=== PATIENT | male | born 1980 | race Two or more races ===

== ENCOUNTER 2021-07-10 08:18 | Inpatient (IN) | payer OTHER ==
[2021-07-10 08:40] VITALS: BMI 26.6
[2021-07-10 09:43] LABS: VENOUS O2 SATURATION 23.9 % (70-80); VENOUS PCO2 44.2 mmHg (38-52); VENOUS PH 7.365 (7.310-7.410)
[2021-07-10 09:45] LABS: BASO % 0.6 % (0-2.0); HEMATOCRIT 47.7 % (35.4-49); HEMOGLOBIN 16.6 GM/dL (11.7-16.9); LYMPH % 20.1 % (8-40); MCH 30.3 pg (25.7-33.7); MCHC 34.7 g/dl (32.0-35.9); MEAN CELL VOLUME 87.3 fl (80-96); MEAN PLT VOLUME 8.2 fl (7.5-11.1); MONO % 8.3 % (3.8-10.2); PLATELET COUNT 396 10^3/uL (134-434); RBC 5.47 M/mm3 (4.00-5.60); RDW 13.4 % (11.9-15.9); WHITE BLOOD COUNT 9.2 K/mm3 (4.0-10.0)
[2021-07-10 10:01] LABS: INR 1.09 (0.83-1.09); PROTHROMBIN TIME (PATIENT) 13.4 SEC (9.7-13.0)
[2021-07-10 10:04] LABS: ACTIVATED PTT 33.5 SECONDS (25.2-36.5)
[2021-07-10 10:06] LABS: CHLORIDE 105 mmol/L (98-107); SODIUM 137 mmol/L (136-145)
[2021-07-10 10:08] LABS: CALCIUM 9.3 mg/dL (8.5-10.1)
[2021-07-10 10:09] LABS: ALBUMIN 3.4 g/dl (3.4-5.0); ANION GAP 6 MMOL/L (8-16); BLOOD UREA NITROGEN 16.7 mg/dL (7-18); CO2 26 mmol/L (21-32); GLUCOSE,RANDOM 87 mg/dL (74-106)
[2021-07-10 10:11] LABS: BILIRUBIN,DIRECT 0.1 mg/dL (0.0-0.2)
[2021-07-10 10:12] LABS: CREATININE 1.1 mg/dL (0.55-1.3); SGOT/AST 25 U/L (15-37); SGPT/ALT 70 U/L (13-61)
[2021-07-10 10:13] LABS: BILIRUBIN,TOTAL 0.8 mg/dL (0.2-1)
[2021-07-10 10:14] LABS: ALK PHOS 118 U/L (45-117)
[2021-07-10 10:15] LABS: LDH 350 U/L (87-246)
[2021-07-10] MEDS ORDERED: ENOXAPARIN NA (PORCINE) 80 MG/0.8 ML DISP.SYRIN SQ ONE ×2 (10:15→10:31)
[2021-07-10] MEDS ORDERED: DEXAMETHASONE SOD PHOSPHATE 4 MG/1 ML VIAL IVPUSH ONE (10:26)
[2021-07-10] MEDS ORDERED: DEXAMETHASONE SOD PHOSPHATE 4 MG/1 ML VIAL ONE (10:31)
[2021-07-10 18:48] LABS: URINE APPEARANCE CLEAR; URINE BILIRUBIN NEGATIVE (NEGATIVE); URINE COLOR YELLOW; URINE GLUCOSE (UA) NEGATIVE (NEGATIVE); URINE KETONE NEGATIVE (NEGATIVE); URINE LEUK ESTERASE NEGATIVE (NEGATIVE); URINE NITRITE NEGATIVE (NEGATIVE); URINE PROTEIN NEGATIVE (NEGATIVE)
[2021-07-10 20:11] LABS: HIV INTERPRETATION NEGATIVE (NEGATIVE)
[2021-07-10] MEDS: ZINC SULFATE 220 MG CAPSULE (FP) PO SCH (21:58)
[2021-07-10] MEDS: ASCORBIC ACID 250 MG TABLET (FP) PO SCH (21:58)
[2021-07-10] MEDS: FAMOTIDINE 20 MG TABLET PO SCH (21:58)
[2021-07-10] MEDS: ENOXAPARIN NA (PORCINE) 80 MG/0.8 ML DISP.SYRIN SQ SCH (21:58)
[2021-07-11 08:23] LABS: BASO % 0.8 % (0-2.0); EOS % 0.2 % (0-4.5); HEMATOCRIT 42.5 % (35.4-49); HEMOGLOBIN 14.8 GM/dL (11.7-16.9); LYMPH % 21.3 % (8-40); MCH 30.5 pg (25.7-33.7); MCHC 34.8 g/dl (32.0-35.9); MEAN CELL VOLUME 87.7 fl (80-96); MEAN PLT VOLUME 8.8 fl (7.5-11.1); MONO % 8.3 % (3.8-10.2); NEUT % 69.4 % (42.8-82.8); PLATELET COUNT 318 10^3/uL (134-434); RBC 4.84 M/mm3 (4.00-5.60); RDW 13.4 % (11.9-15.9); WHITE BLOOD COUNT 7.5 K/mm3 (4.0-10.0)
[2021-07-11 08:42] LABS: CALCIUM 8.9 mg/dL (8.5-10.1)
[2021-07-11 08:43] LABS: BLOOD UREA NITROGEN 18.2 mg/dL (7-18); MAGNESIUM 2.2 mg/dL (1.8-2.4)
[2021-07-11 08:46] LABS: CREATININE 0.9 mg/dL (0.55-1.3)
[2021-07-11 08:47] LABS: BILIRUBIN,TOTAL 0.6 mg/dL (0.2-1); TOT PROT 7.2 g/dl (6.4-8.2)
[2021-07-11] MEDS: DEXAMETHASONE SOD PHOSPHATE 10 MG/1 ML VIAL IVPUSH SCH (10:18)
[2021-07-11] MEDS: CHOLECALCIFEROL (VIT D3) 1,000 UNIT (25 MCG) TABLET PO SCH (10:18)
[2021-07-11] MEDS: ZINC SULFATE 220 MG CAPSULE (FP) PO SCH ×2 (10:18→21:51)
[2021-07-11] MEDS: FAMOTIDINE 20 MG TABLET PO SCH ×2 (10:18→21:51)
[2021-07-11] MEDS: ASCORBIC ACID 250 MG TABLET (FP) PO SCH ×2 (10:19→21:51)
[2021-07-11] MEDS: ENOXAPARIN NA (PORCINE) 80 MG/0.8 ML DISP.SYRIN SQ SCH ×2 (10:19→21:51)
[2021-07-11] MEDS ORDERED: FLU VACC QS2021-22(6MOS UP)/PF 60 MCG/0.5 ML SYRINGE IM ONE (15:15)
[2021-07-12] MEDS ORDERED: PT OWN MED DRAWER 7, Y5N ONE (09:01)
[2021-07-12] MEDS: ASCORBIC ACID 250 MG TABLET (FP) PO SCH ×2 (09:16→21:27)
[2021-07-12] MEDS: CHOLECALCIFEROL (VIT D3) 1,000 UNIT (25 MCG) TABLET PO SCH (09:16)
[2021-07-12] MEDS: ENOXAPARIN NA (PORCINE) 80 MG/0.8 ML DISP.SYRIN SQ SCH ×2 (09:18→21:27)
[2021-07-12] MEDS: FAMOTIDINE 20 MG TABLET PO SCH ×2 (09:19→21:27)
[2021-07-12] MEDS: DEXAMETHASONE SOD PHOSPHATE 10 MG/1 ML VIAL IVPUSH SCH (09:19)
[2021-07-12] MEDS: ZINC SULFATE 220 MG CAPSULE (FP) PO SCH ×2 (09:19→21:27)
[2021-07-12 09:22] LABS: BASO % 0.4 % (0-2.0); EOS % 0.2 % (0-4.5); HEMATOCRIT 45.9 % (35.4-49); HEMOGLOBIN 15.6 GM/dL (11.7-16.9); LYMPH % 20.8 % (8-40); MCH 30.6 pg (25.7-33.7); MEAN PLT VOLUME 8.9 fl (7.5-11.1); MONO % 7.8 % (3.8-10.2); NEUT % 70.8 % (42.8-82.8); PLATELET COUNT 333 10^3/uL (134-434); RBC 5.11 M/mm3 (4.00-5.60); RDW 13.5 % (11.9-15.9); WHITE BLOOD COUNT 8.1 K/mm3 (4.0-10.0)
[2021-07-12 11:39] LABS: BLOOD UREA NITROGEN 20.3 mg/dL (7-18); CHLORIDE 107 mmol/L (98-107); CO2 26 mmol/L (21-32); CREATININE 0.9 mg/dL (0.55-1.3); GLUCOSE,RANDOM 84 mg/dL (74-106); MAGNESIUM 2.1 mg/dL (1.8-2.4); SODIUM 141 mmol/L (136-145); TOT PROT 7.4 g/dl (6.4-8.2)
[2021-07-12 11:40] LABS: ALK PHOS 117 U/L (45-117); BILIRUBIN,TOTAL 0.5 mg/dL (0.2-1); SGOT/AST 109 U/L (15-37); SGPT/ALT 224 U/L (13-61)
[2021-07-13 06:26] LABS: BASO % 0.4 % (0-2.0); EOS % 0.3 % (0-4.5); HEMATOCRIT 44.6 % (35.4-49); HEMOGLOBIN 15.2 GM/dL (11.7-16.9); LYMPH % 25.9 % (8-40); MCH 30.4 pg (25.7-33.7); MCHC 34.2 g/dl (32.0-35.9); MEAN CELL VOLUME 88.9 fl (80-96); MEAN PLT VOLUME 8.6 fl (7.5-11.1); MONO % 8.8 % (3.8-10.2); NEUT % 64.6 % (42.8-82.8); PLATELET COUNT 321 10^3/uL (134-434); RBC 5.01 M/mm3 (4.00-5.60); RDW 13.6 % (11.9-15.9); WHITE BLOOD COUNT 9.2 K/mm3 (4.0-10.0)
[2021-07-13 06:43] LABS: ALBUMIN 2.9 g/dl (3.4-5.0); BLOOD UREA NITROGEN 20.1 mg/dL (7-18)
[2021-07-13 06:44] LABS: CALCIUM 9.4 mg/dL (8.5-10.1); MAGNESIUM 2.4 mg/dL (1.8-2.4)
[2021-07-13 06:47] LABS: CREATININE 0.9 mg/dL (0.55-1.3)
[2021-07-13 06:48] LABS: BILIRUBIN,TOTAL 0.4 mg/dL (0.2-1)
[2021-07-13] MEDS: ENOXAPARIN NA (PORCINE) 80 MG/0.8 ML DISP.SYRIN SQ SCH ×2 (09:46→21:52)
[2021-07-13] MEDS: ASCORBIC ACID 250 MG TABLET (FP) PO SCH ×2 (09:47→21:52)
[2021-07-13] MEDS: ZINC SULFATE 220 MG CAPSULE (FP) PO SCH ×2 (09:47→21:52)
[2021-07-13] MEDS: FAMOTIDINE 20 MG TABLET PO SCH ×2 (09:47→21:52)
[2021-07-13] MEDS: DEXAMETHASONE SOD PHOSPHATE 10 MG/1 ML VIAL IVPUSH SCH (09:47)
[2021-07-13] MEDS: CHOLECALCIFEROL (VIT D3) 1,000 UNIT (25 MCG) TABLET PO SCH (09:47)
[2021-07-13] MEDS ORDERED: FLU VACC QS2021-22(6MOS UP)/PF 60 MCG/0.5 ML SYRINGE IM ONE (10:00)
[2021-07-13] MEDS ORDERED: PT OWN MED DRAWER 7, Y5N ONE (21:45)
[2021-07-14] MEDS ORDERED: PT OWN MED DRAWER 7, Y5N ONE ×2 (08:50→21:48)
[2021-07-14] MEDS: ENOXAPARIN NA (PORCINE) 80 MG/0.8 ML DISP.SYRIN SQ SCH ×2 (09:20→22:43)
[2021-07-14] MEDS: FAMOTIDINE 20 MG TABLET PO SCH ×2 (09:20→22:42)
[2021-07-14] MEDS: DEXAMETHASONE SOD PHOSPHATE 10 MG/1 ML VIAL IVPUSH SCH (09:20)
[2021-07-14] MEDS: ZINC SULFATE 220 MG CAPSULE (FP) PO SCH ×2 (09:20→22:42)
[2021-07-14] MEDS: ASCORBIC ACID 250 MG TABLET (FP) PO SCH ×2 (09:20→22:43)
[2021-07-14] MEDS: CHOLECALCIFEROL (VIT D3) 1,000 UNIT (25 MCG) TABLET PO SCH (09:20)
[2021-07-14 12:22] LABS: BASO % 0.4 % (0-2.0); EOS % 0.1 % (0-4.5); HEMATOCRIT 45.2 % (35.4-49); HEMOGLOBIN 15.4 GM/dL (11.7-16.9); LYMPH % 11.1 % (8-40); MCH 30.2 pg (25.7-33.7); MCHC 34.2 g/dl (32.0-35.9); MEAN CELL VOLUME 88.4 fl (80-96); MEAN PLT VOLUME 8.6 fl (7.5-11.1); MONO % 5.2 % (3.8-10.2); NEUT % 83.2 % (42.8-82.8); PLATELET COUNT 306 10^3/uL (134-434); RBC 5.11 M/mm3 (4.00-5.60); RDW 13.4 % (11.9-15.9)
[2021-07-14 12:42] LABS: ALBUMIN 2.9 g/dl (3.4-5.0)
[2021-07-14 12:44] LABS: BILIRUBIN,TOTAL 1.2 mg/dL (0.2-1)
[2021-07-14 12:45] LABS: BILIRUBIN,DIRECT 0.1 mg/dL (0.0-0.2)
[2021-07-14 12:47] LABS: TOT PROT 7.3 g/dl (6.4-8.2)
[2021-07-14 13:57] LABS: BILIRUBIN,TOTAL 0.3 mg/dL (0.2-1); BLOOD UREA NITROGEN 20.5 mg/dL (7-18); CALCIUM 9.2 mg/dL (8.5-10.1); CREATININE 0.8 mg/dL (0.55-1.3); TOT PROT 7.1 g/dl (6.4-8.2)
[2021-07-15 06:40] LABS: BASO % 0.4 % (0-2.0); EOS % 0.4 % (0-4.5); HEMATOCRIT 45.2 % (35.4-49); HEMOGLOBIN 15.7 GM/dL (11.7-16.9); LYMPH % 28.7 % (8-40); MCH 30.6 pg (25.7-33.7); MCHC 34.7 g/dl (32.0-35.9); MEAN CELL VOLUME 88.4 fl (80-96); MEAN PLT VOLUME 9.1 fl (7.5-11.1); NEUT % 63.5 % (42.8-82.8); PLATELET COUNT 388 10^3/uL (134-434); RBC 5.11 M/mm3 (4.00-5.60); RDW 13.3 % (11.9-15.9); WHITE BLOOD COUNT 10.4 K/mm3 (4.0-10.0)
[2021-07-15 07:08] LABS: ALBUMIN 3.3 g/dl (3.4-5.0); CALCIUM 9.3 mg/dL (8.5-10.1)
[2021-07-15 07:09] LABS: BLOOD UREA NITROGEN 18.4 mg/dL (7-18); MAGNESIUM 2.1 mg/dL (1.8-2.4)
[2021-07-15 07:13] LABS: BILIRUBIN,TOTAL 0.6 mg/dL (0.2-1); TOT PROT 7.6 g/dl (6.4-8.2)
[2021-07-15] MEDS: FAMOTIDINE 20 MG TABLET PO SCH ×2 (10:15→21:02)
[2021-07-15] MEDS: ZINC SULFATE 220 MG CAPSULE (FP) PO SCH ×2 (10:16→21:02)
[2021-07-15] MEDS: APIXABAN 5 MG TABLET PO SCH ×2 (10:16→21:03)
[2021-07-15] MEDS: CHOLECALCIFEROL (VIT D3) 1,000 UNIT (25 MCG) TABLET PO SCH (10:16)
[2021-07-15] MEDS: ASCORBIC ACID 250 MG TABLET (FP) PO SCH ×2 (10:16→21:02)
[2021-07-15] MEDS: DEXAMETHASONE 4 MG TABLET (FP) PO SCH (10:16)
[2021-07-15] MEDS ORDERED: PT OWN MED DRAWER 7, Y5N ONE (20:58)
[2021-07-16 08:02] LABS: BASO % 0.6 % (0-2.0); EOS % 0.9 % (0-4.5); HEMATOCRIT 43.6 % (35.4-49); HEMOGLOBIN 15.2 GM/dL (11.7-16.9); LYMPH % 27.3 % (8-40); MCH 30.6 pg (25.7-33.7); MCHC 34.8 g/dl (32.0-35.9); MEAN CELL VOLUME 87.8 fl (80-96); MEAN PLT VOLUME 8.6 fl (7.5-11.1); MONO % 8.3 % (3.8-10.2); NEUT % 62.9 % (42.8-82.8); PLATELET COUNT 321 10^3/uL (134-434); RBC 4.96 M/mm3 (4.00-5.60); RDW 13.4 % (11.9-15.9); WHITE BLOOD COUNT 9.4 K/mm3 (4.0-10.0)
[2021-07-16 08:08] LABS: INR 1.19 (0.83-1.09); PROTHROMBIN TIME (PATIENT) 14.7 SEC (9.7-13.0)
[2021-07-16 08:27] LABS: ALBUMIN 3.1 g/dl (3.4-5.0); BLOOD UREA NITROGEN 18.6 mg/dL (7-18); CALCIUM 9.2 mg/dL (8.5-10.1)
[2021-07-16 08:28] LABS: MAGNESIUM 2.2 mg/dL (1.8-2.4)
[2021-07-16 08:30] LABS: CREATININE 0.9 mg/dL (0.55-1.3)
[2021-07-16 08:32] LABS: TOT PROT 7.3 g/dl (6.4-8.2)
[2021-07-16] MEDS: APIXABAN 5 MG TABLET PO SCH (10:26)
[2021-07-16] MEDS: ASCORBIC ACID 250 MG TABLET (FP) PO SCH ×2 (10:26→22:02)
[2021-07-16] MEDS: FAMOTIDINE 20 MG TABLET PO SCH ×2 (10:26→22:02)
[2021-07-16] MEDS: DEXAMETHASONE 4 MG TABLET (FP) PO SCH (10:27)
[2021-07-16] MEDS: ZINC SULFATE 220 MG CAPSULE (FP) PO SCH ×2 (10:27→22:02)
[2021-07-16] MEDS: CHOLECALCIFEROL (VIT D3) 1,000 UNIT (25 MCG) TABLET PO SCH (10:27)
[2021-07-16] MEDS ORDERED: HEPARIN NA (PORCINE) 5,000 UNITS/ML 1ML VIAL IVPUSH PRN ×2 (15:09)
[2021-07-16] MEDS: HEPARIN INFUSION - 25,000 UNITS/500 ML INFUS.BAG IVPB SCH (15:27)
[2021-07-16] MEDS ORDERED: PT OWN MED DRAWER 7, Y5N ONE (21:56)
[2021-07-16] MEDS ORDERED: ENOXAPARIN NA (PORCINE) 80 MG/0.8 ML DISP.SYRIN SQ SCH (22:00)
[2021-07-17 06:26] LABS: HEMOGLOBIN 15.9 GM/dL (11.7-16.9); MCH 30.3 pg (25.7-33.7); MCHC 33.9 g/dl (32.0-35.9); MEAN CELL VOLUME 89.4 fl (80-96); MEAN PLT VOLUME 9.1 fl (7.5-11.1); PLATELET COUNT 362 10^3/uL (134-434); RBC 5.26 M/mm3 (4.00-5.60); RDW 13.5 % (11.9-15.9)
[2021-07-17 06:35] LABS: INR 1.04 (0.83-1.09); PROTHROMBIN TIME (PATIENT) 12.8 SEC (9.7-13.0)
[2021-07-17 06:53] LABS: CALCIUM 9.4 mg/dL (8.5-10.1)
[2021-07-17 06:54] LABS: ALBUMIN 3.5 g/dl (3.4-5.0); BLOOD UREA NITROGEN 18.8 mg/dL (7-18); MAGNESIUM 2.6 mg/dL (1.8-2.4)
[2021-07-17 06:57] LABS: BILIRUBIN,TOTAL 0.6 mg/dL (0.2-1); CREATININE 0.9 mg/dL (0.55-1.3)
[2021-07-17 08:45] LABS: ANISOCYTOSIS 0; HELMET CELLS 0; HOWELL-JOLLY BODIES 0; MACROCYTOSIS 0; OVALOCYTE 0; PLATELET ESTIMATE NORMAL; ROULEAU 0; SICKELED CELLS 0; TARGET CELLS 0; TEAR DROP CELLS 0; TOXIC GRANULATION 0
[2021-07-17] MEDS ORDERED: PT OWN MED DRAWER 7, Y5N ONE ×2 (08:47→22:36)
[2021-07-17] MEDS: ZINC SULFATE 220 MG CAPSULE (FP) PO SCH ×2 (09:22→22:39)
[2021-07-17] MEDS: FAMOTIDINE 20 MG TABLET PO SCH ×2 (09:22→22:39)
[2021-07-17] MEDS: ASCORBIC ACID 250 MG TABLET (FP) PO SCH ×2 (09:23→22:39)
[2021-07-17] MEDS: DEXAMETHASONE 4 MG TABLET (FP) PO SCH (09:23)
[2021-07-17] MEDS ORDERED: APIXABAN 5 MG TABLET PO SCH (10:00)
[2021-07-17] MEDS: HEPARIN INFUSION - 25,000 UNITS/500 ML INFUS.BAG IVPB SCH ×2 (12:51→20:14)
[2021-07-18] MEDS: ZINC SULFATE 220 MG CAPSULE (FP) PO SCH ×2 (09:42→21:40)
[2021-07-18] MEDS: DEXAMETHASONE 4 MG TABLET (FP) PO SCH (09:42)
[2021-07-18] MEDS: FAMOTIDINE 20 MG TABLET PO SCH ×2 (09:42→21:40)
[2021-07-18] MEDS ORDERED: PT OWN MED DRAWER 7, Y5N ONE ×3 (09:45→21:27)
[2021-07-18 09:50] LABS: HEMATOCRIT 43.7 % (35.4-49); HEMOGLOBIN 15.1 GM/dL (11.7-16.9); MCH 30.5 pg (25.7-33.7); MCHC 34.5 g/dl (32.0-35.9); MEAN CELL VOLUME 88.4 fl (80-96); PLATELET COUNT 306 10^3/uL (134-434); RBC 4.94 M/mm3 (4.00-5.60); RDW 13.6 % (11.9-15.9); WHITE BLOOD COUNT 11.4 K/mm3 (4.0-10.0)
[2021-07-18 10:00] LABS: INR 0.99 (0.83-1.09)
[2021-07-18 10:19] LABS: BLOOD UREA NITROGEN 18.2 mg/dL (7-18)
[2021-07-18 10:20] LABS: CALCIUM 8.8 mg/dL (8.5-10.1)
[2021-07-18 10:21] LABS: ALBUMIN 3.1 g/dl (3.4-5.0); MAGNESIUM 1.9 mg/dL (1.8-2.4)
[2021-07-18 10:25] LABS: BILIRUBIN,TOTAL 0.3 mg/dL (0.2-1); TOT PROT 7.1 g/dl (6.4-8.2)
[2021-07-18] MEDS ORDERED: HEPARIN NA (PORCINE) 5,000 UNITS/ML 1ML VIAL IVPUSH PRN ×2 (10:25)
[2021-07-18 10:31] LABS: CREATININE 0.9 mg/dL (0.55-1.3)
[2021-07-18] MEDS: HEPARIN INFUSION - 25,000 UNITS/500 ML INFUS.BAG IVPB SCH (10:31)
[2021-07-18 11:44] LABS: ANISOCYTOSIS 0; MACROCYTOSIS 0; PLATELET ESTIMATE NORMAL
[2021-07-18] MEDS: ASCORBIC ACID 250 MG TABLET (FP) PO SCH ×2 (14:39→21:40)
[2021-07-19 08:39] LABS: HEMATOCRIT 44.7 % (35.4-49); HEMOGLOBIN 15.4 GM/dL (11.7-16.9); MCH 30.5 pg (25.7-33.7); MCHC 34.4 g/dl (32.0-35.9); MEAN CELL VOLUME 88.8 fl (80-96); MEAN PLT VOLUME 8.7 fl (7.5-11.1); PLATELET COUNT 323 10^3/uL (134-434); RBC 5.03 M/mm3 (4.00-5.60); RDW 14.1 % (11.9-15.9); WHITE BLOOD COUNT 12.7 K/mm3 (4.0-10.0)
[2021-07-19 08:46] LABS: INR 0.98 (0.83-1.09); PROTHROMBIN TIME (PATIENT) 11.9 SEC (9.7-13.0)
[2021-07-19 09:01] LABS: CALCIUM 9.3 mg/dL (8.5-10.1)
[2021-07-19 09:02] LABS: ALBUMIN 3.3 g/dl (3.4-5.0); BLOOD UREA NITROGEN 14.2 mg/dL (7-18); MAGNESIUM 2.5 mg/dL (1.8-2.4)
[2021-07-19 09:05] LABS: CREATININE 0.8 mg/dL (0.55-1.3)
[2021-07-19 09:06] LABS: BILIRUBIN,TOTAL 0.4 mg/dL (0.2-1); TOT PROT 7.3 g/dl (6.4-8.2)
[2021-07-19] MEDS: ZINC SULFATE 220 MG CAPSULE (FP) PO SCH ×2 (09:49→21:52)
[2021-07-19] MEDS: FAMOTIDINE 20 MG TABLET PO SCH ×2 (09:49→21:52)
[2021-07-19] MEDS: ASCORBIC ACID 250 MG TABLET (FP) PO SCH ×2 (09:49→21:52)
[2021-07-19] MEDS: DEXAMETHASONE 4 MG TABLET (FP) PO SCH (09:52)
[2021-07-19 09:53] LABS: ANISOCYTOSIS 0; MACROCYTOSIS 0; PLATELET ESTIMATE NORMAL
[2021-07-19] MEDS ORDERED: PT OWN MED DRAWER 7, Y5N ONE (21:48)
[2021-07-20 06:21] LABS: HEMATOCRIT 44.2 % (35.4-49); HEMOGLOBIN 15.2 GM/dL (11.7-16.9); MCH 30.4 pg (25.7-33.7); MCHC 34.3 g/dl (32.0-35.9); MEAN CELL VOLUME 88.7 fl (80-96); MEAN PLT VOLUME 8.7 fl (7.5-11.1); PLATELET COUNT 301 10^3/uL (134-434); RBC 4.99 M/mm3 (4.00-5.60); RDW 13.8 % (11.9-15.9)
[2021-07-20 06:39] LABS: CHLORIDE 106 mmol/L (98-107); SODIUM 138 mmol/L (136-145)
[2021-07-20 06:43] LABS: GLUCOSE,RANDOM 117 mg/dL (74-106)
[2021-07-20 06:45] LABS: CALCIUM 8.8 mg/dL (8.5-10.1)
[2021-07-20 06:46] LABS: ALBUMIN 2.9 g/dl (3.4-5.0); ANION GAP 8 MMOL/L (8-16); BLOOD UREA NITROGEN 14.5 mg/dL (7-18); CO2 24 mmol/L (21-32); MAGNESIUM 1.9 mg/dL (1.8-2.4)
[2021-07-20 06:49] LABS: CREATININE 0.8 mg/dL (0.55-1.3); SGOT/AST 163 U/L (15-37)
[2021-07-20 06:50] LABS: BILIRUBIN,TOTAL 0.4 mg/dL (0.2-1)
[2021-07-20 06:51] LABS: TOT PROT 6.7 g/dl (6.4-8.2)
[2021-07-20 06:52] LABS: ALK PHOS 131 U/L (45-117); SGPT/ALT 819 U/L (13-61)
[2021-07-20] MEDS ORDERED: PT OWN MED DRAWER 7, Y5N ONE ×2 (09:00→21:49)
[2021-07-20 09:04] LABS: ANISOCYTOSIS 0; HELMET CELLS 0; HOWELL-JOLLY BODIES 0; MACROCYTOSIS 0; OVALOCYTE 0; PLATELET ESTIMATE NORMAL; ROULEAU 0; SICKELED CELLS 0; TARGET CELLS 0; TEAR DROP CELLS 0; TOXIC GRANULATION 0
[2021-07-20] MEDS: ASCORBIC ACID 250 MG TABLET (FP) PO SCH ×2 (09:20→22:15)
[2021-07-20] MEDS: ZINC SULFATE 220 MG CAPSULE (FP) PO SCH ×2 (09:20→22:15)
[2021-07-20] MEDS: FAMOTIDINE 20 MG TABLET PO SCH ×2 (09:20→22:15)
[2021-07-20] MEDS: DEXAMETHASONE 4 MG TABLET (FP) PO SCH (09:21)
[2021-07-20] MEDS: APIXABAN 5 MG TABLET PO SCH (22:14)
[2021-07-21 06:29] LABS: HEMATOCRIT 47.6 % (35.4-49); HEMOGLOBIN 16.1 GM/dL (11.7-16.9); MCH 30.4 pg (25.7-33.7); MCHC 33.9 g/dl (32.0-35.9); MEAN CELL VOLUME 89.8 fl (80-96); MEAN PLT VOLUME 8.6 fl (7.5-11.1); PLATELET COUNT 338 10^3/uL (134-434); WHITE BLOOD COUNT 13.9 K/mm3 (4.0-10.0)
[2021-07-21 06:47] LABS: INR 1.05 (0.83-1.09); PROTHROMBIN TIME (PATIENT) 12.7 SEC (9.7-13.0)
[2021-07-21 06:48] LABS: CHLORIDE 104 mmol/L (98-107); SODIUM 139 mmol/L (136-145)
[2021-07-21 06:52] LABS: ALBUMIN 3.4 g/dl (3.4-5.0); ANION GAP 8 MMOL/L (8-16); BLOOD UREA NITROGEN 17.8 mg/dL (7-18); CALCIUM 9.4 mg/dL (8.5-10.1); CO2 27 mmol/L (21-32)
[2021-07-21 06:53] LABS: GLUCOSE,RANDOM 95 mg/dL (74-106); MAGNESIUM 2.4 mg/dL (1.8-2.4)
[2021-07-21 06:55] LABS: SGPT/ALT 837 U/L (13-61)
[2021-07-21 06:56] LABS: IRON SERUM 121 ug/dL (50-175); SGOT/AST 126 U/L (15-37)
[2021-07-21 06:57] LABS: BILIRUBIN,TOTAL 0.4 mg/dL (0.2-1); TOT PROT 7.6 g/dl (6.4-8.2); TOTAL IRON BINDING CAPACITY 298 ug/dL (250-450)
[2021-07-21 06:58] LABS: ALK PHOS 144 U/L (45-117)
[2021-07-21] MEDS ORDERED: PT OWN MED DRAWER 7, Y5N ONE ×2 (08:44→21:04)
[2021-07-21] MEDS: ASCORBIC ACID 250 MG TABLET (FP) PO SCH ×2 (09:01→21:29)
[2021-07-21] MEDS: FAMOTIDINE 20 MG TABLET PO SCH (09:01)
[2021-07-21] MEDS: DEXAMETHASONE 4 MG TABLET (FP) PO SCH (09:01)
[2021-07-21] MEDS: APIXABAN 5 MG TABLET PO SCH ×2 (09:01→21:29)
[2021-07-21] MEDS: ZINC SULFATE 220 MG CAPSULE (FP) PO SCH (09:01)
[2021-07-21 11:06] LABS: ANISOCYTOSIS 0; MACROCYTOSIS 0; PLATELET ESTIMATE NORMAL
[2021-07-22 07:20] LABS: HEMATOCRIT 43.8 % (35.4-49); MCH 30.1 pg (25.7-33.7); MCHC 34.2 g/dl (32.0-35.9); MEAN PLT VOLUME 8.4 fl (7.5-11.1); PLATELET COUNT 290 10^3/uL (134-434); RBC 4.97 M/mm3 (4.00-5.60); RDW 14.4 % (11.9-15.9); WHITE BLOOD COUNT 12.9 K/mm3 (4.0-10.0)
[2021-07-22 07:34] LABS: INR 1.04 (0.83-1.09); PROTHROMBIN TIME (PATIENT) 12.8 SEC (9.7-13.0)
[2021-07-22 07:40] LABS: CHLORIDE 105 mmol/L (98-107); SODIUM 139 mmol/L (136-145)
[2021-07-22 07:44] LABS: ALBUMIN 3.2 g/dl (3.4-5.0); ANION GAP 6 MMOL/L (8-16); BLOOD UREA NITROGEN 17.2 mg/dL (7-18); CO2 27 mmol/L (21-32); GLUCOSE,RANDOM 81 mg/dL (74-106); MAGNESIUM 2.2 mg/dL (1.8-2.4)
[2021-07-22 07:47] LABS: CREATININE 0.8 mg/dL (0.55-1.3); SGOT/AST 87 U/L (15-37); SGPT/ALT 613 U/L (13-61)
[2021-07-22 07:48] LABS: ALK PHOS 120 U/L (45-117); BILIRUBIN,TOTAL 0.5 mg/dL (0.2-1)
[2021-07-22 07:49] LABS: TOT PROT 6.6 g/dl (6.4-8.2)
[2021-07-22] MEDS ORDERED: PT OWN MED DRAWER 7, Y5N ONE ×2 (08:50→20:43)
[2021-07-22] MEDS: DEXAMETHASONE 4 MG TABLET (FP) PO SCH (09:08)
[2021-07-22] MEDS: APIXABAN 5 MG TABLET PO SCH ×2 (09:08→21:02)
[2021-07-22] MEDS: ASCORBIC ACID 250 MG TABLET (FP) PO SCH ×2 (09:08→21:03)
[2021-07-22 10:00] LABS: ANISOCYTOSIS 0; MACROCYTOSIS 0; PLATELET ESTIMATE NORMAL
[2021-07-23 06:34] LABS: HEMATOCRIT 43.2 % (35.4-49); HEMOGLOBIN 14.8 GM/dL (11.7-16.9); MCH 30.6 pg (25.7-33.7); MCHC 34.2 g/dl (32.0-35.9); MEAN CELL VOLUME 89.4 fl (80-96); MEAN PLT VOLUME 8.7 fl (7.5-11.1); PLATELET COUNT 279 10^3/uL (134-434); RBC 4.84 M/mm3 (4.00-5.60); RDW 14.2 % (11.9-15.9); WHITE BLOOD COUNT 13.7 K/mm3 (4.0-10.0)
[2021-07-23 06:59] LABS: CHLORIDE 106 mmol/L (98-107); SODIUM 138 mmol/L (136-145)
[2021-07-23 07:02] LABS: CALCIUM 9.1 mg/dL (8.5-10.1)
[2021-07-23 07:03] LABS: ANION GAP 7 MMOL/L (8-16); BLOOD UREA NITROGEN 18.5 mg/dL (7-18); CO2 25 mmol/L (21-32); MAGNESIUM 2.1 mg/dL (1.8-2.4)
[2021-07-23 07:06] LABS: CREATININE 0.9 mg/dL (0.55-1.3); GLUCOSE,RANDOM 98 mg/dL (74-106); SGOT/AST 109 U/L (15-37); SGPT/ALT 615 U/L (13-61)
[2021-07-23 07:07] LABS: BILIRUBIN,TOTAL 0.4 mg/dL (0.2-1); TOT PROT 6.5 g/dl (6.4-8.2)
[2021-07-23 07:09] LABS: ALK PHOS 118 U/L (45-117)
[2021-07-23 09:15] LABS: ANISOCYTOSIS 1+; MACROCYTOSIS 0; OVALOCYTE 1+; PLATELET ESTIMATE NORMAL
[2021-07-23] MEDS: APIXABAN 5 MG TABLET PO SCH ×2 (10:10→21:29)
[2021-07-23] MEDS: DEXAMETHASONE 4 MG TABLET (FP) PO SCH (10:10)
[2021-07-24 07:01] LABS: HEMATOCRIT 45.2 % (35.4-49); HEMOGLOBIN 15.4 GM/dL (11.7-16.9); MCH 30.6 pg (25.7-33.7); MEAN CELL VOLUME 89.9 fl (80-96); MEAN PLT VOLUME 8.9 fl (7.5-11.1); PLATELET COUNT 296 10^3/uL (134-434); RBC 5.03 M/mm3 (4.00-5.60); RDW 14.4 % (11.9-15.9)
[2021-07-24 07:08] LABS: INR 1.03 (0.83-1.09); PROTHROMBIN TIME (PATIENT) 12.1 SEC (9.7-13.0)
[2021-07-24 07:22] LABS: CHLORIDE 105 mmol/L (98-107); SODIUM 139 mmol/L (136-145)
[2021-07-24 07:26] LABS: GLUCOSE,RANDOM 113 mg/dL (74-106)
[2021-07-24 07:28] LABS: ALBUMIN 3.3 g/dl (3.4-5.0); ANION GAP 7 MMOL/L (8-16); BLOOD UREA NITROGEN 18.8 mg/dL (7-18); CALCIUM 8.8 mg/dL (8.5-10.1); CO2 27 mmol/L (21-32)
[2021-07-24 07:30] LABS: SGOT/AST 111 U/L (15-37); SGPT/ALT 625 U/L (13-61)
[2021-07-24 07:31] LABS: CREATININE 0.9 mg/dL (0.55-1.3)
[2021-07-24 07:32] LABS: BILIRUBIN,TOTAL 0.4 mg/dL (0.2-1)
[2021-07-24 07:33] LABS: ALK PHOS 121 U/L (45-117)
[2021-07-24 08:58] LABS: ANISOCYTOSIS 1+; MACROCYTOSIS 0; PLATELET ESTIMATE NORMAL; TEAR DROP CELLS 1+
[2021-07-24] MEDS: DEXAMETHASONE 4 MG TABLET (FP) PO SCH (09:17)
[2021-07-24] MEDS: APIXABAN 5 MG TABLET PO SCH (09:17)
[2021-07-24 14:01] VITALS: BP 139/89; PULSE 113; TEMP 98
== END 2021-07-24 17:36 | disposition home or self-care (01) | DRG 137 ==
LOC: JER 08:18 → JERBED 10:13 → J4S 20:13
PROVIDERS: ADMIT Internal Medicine; ATTEND Nurse Practitioner Family
PROC: 0W9G30Z Drainage of Peritoneal Cavity with Drainage Device, Percutaneous Approach (ICD-10-PCS; principal; 2021-07-10)
DX: U07.1 COVID-19 (principal); J12.82 Pneumonia due to coronavirus disease 2019; I26.99 Other pulmonary embolism without acute cor pulmonale; J96.01 Acute respiratory failure with hypoxia; K76.1 Chronic passive congestion of liver; J93.0 Spontaneous tension pneumothorax; J90 Pleural effusion, not elsewhere classified; J93.9 Pneumothorax, unspecified; R50.9 Fever, unspecified; R04.2 Hemoptysis; R00.0 Tachycardia, unspecified; R74.8 Abnormal levels of other serum enzymes; R94.5 Abnormal results of liver function studies; T50.995A Adverse effect of other drugs, medicaments and biological substances, initial encounter; K76.0 Fatty (change of) liver, not elsewhere classified
CPT/HCPCS: 36415; 71045-TC-FY; 71275-TC; 74181-TC; 76705-TC; 80053; 80076; 81003; 82140; 82248; 82272; 82550; 82728; 82803; 83516; 83540; 83550; 83605; 83615; 83735; 84100; 84484; 85025; 85379; 85610; 85651; 85730; 86038; 86140; 86705; 86707; 86708; 86803; 87040; 87086; 87340; 87350; 87389; 87804; 90686; 93005; 93010; 93306-TC; 94010; 94761; 99291; 99292; C9803; G0008; J1100; J1644; Q9967; U0003; U0005

== ENCOUNTER 2022-06-27 08:20 | Emergency (ER) | payer OTHER ==
[2022-06-27 08:25] VITALS: BP 133/85; PULSE 99; RESP 20; TEMP 98.4; BMI 28.8
[2022-06-27] MEDS ORDERED: LIDOCAINE 5% TOPICAL PATCH TP ONE (09:36)
[2022-06-27] MEDS ORDERED: KETOROLAC TROMETHAMINE 30 MG/1 ML VIAL IM ONE (10:09)
[2022-06-27] MEDS ORDERED: LIDOCAINE PATCH REMOVAL MC ONE (22:00)
== END 2022-06-27 11:00 | disposition home or self-care (01) ==
LOC: JER 08:20
PROC: 3E0233Z Introduction of Anti-inflammatory into Muscle, Percutaneous Approach (ICD-10-PCS; principal; 2022-06-27)
DX: U07.1 COVID-19 (principal); M54.50 Low back pain, unspecified
CPT/HCPCS: 0241U-QW; 71046-TC-FY; 99284-25